=== PATIENT | male | born 1975 | race Caucasian/White ===

== ENCOUNTER 2017-07-19 01:58 | Emergency (ER) | payer MEDICAID, OTHER ==
[~2017-07-19] VITALS: Ht 172.7 cm; Wt 77.1 kg
--- NOTE | 2017-07-19 02:45 | NUR ---
TO BED 6 A 42 YO MALE PATIENT BB SELF C/O RIGHT KNEE PAIN. GRADUAL ONSET X 2 WEEKS. PATIENT DENIES TRAUMA ASSOCIATED WITH KNEE. VSS. NAD NOTED. AMBULATORY. COMFORT MEASURES RENDERED.
--- NOTE | 2017-07-19 03:21 | NUR ---
Dr Martin at bedside to eval.
[2017-07-19] MEDS ORDERED: ACETAMINOPHEN ES 500 MG TABLET ONE (03:29)
[2017-07-19] MEDS ORDERED: ACETAMINOPHEN 325 MG TABLET PO ONE (03:30)
--- NOTE | 2017-07-19 03:40 | NUR ---
Patient discharged to home in stable condition. Written and verbal after care instructions given. Patient verbalizes understanding of instruction. Patient is ambulatory, accompanied by family. No further complaints.
[2017-07-19 03:41] VITALS: BP 119/75
== END 2017-07-19 03:42 | disposition home or self-care (01) ==
LOC: ER 02:02
DX: M23.91 Unspecified internal derangement of right knee (principal); Z88.8 Allergy status to other drugs, medicaments and biological substances
CPT/HCPCS: 29505; 99283; A4606; Z7610